=== PATIENT | female | born 1940 | race Caucasian/White ===

== ENCOUNTER 2017-05-23 06:23 | Emergency (ER) | payer MEDICARE, BC ==
[2017-05-23] MEDS ORDERED: Morphine 2 MG/ML SYRINGE ONE (07:04)
--- NOTE | 2017-05-23 07:39 | CT ---
BRAIN CT WITHOUT CONTRAST: Date: HISTORY: Headache. COMPARISON: CT brain dated 01/27/08. FINDINGS: Mild atrophy. Mild microangiopathic changes. Calvarium is intact. Paranasal sinuses and mastoids are clear. IMPRESSION: No acute intracranial abnormality. POS: [facility]
[2017-05-23] MEDS ORDERED: Ondansetron ODT 4 MG TAB ONE (08:25)
[2017-05-23] MEDS ORDERED: Ketorolac Tromethamine 30 MG/ML VIAL ONE (08:25)
== END 2017-05-23 08:55 | disposition home or self-care (01) ==
LOC: SCSER 06:23
DX: G43.009 Migraine without aura, not intractable, without status migrainosus (principal); F41.9 Anxiety disorder, unspecified; K21.9 Gastro-esophageal reflux disease without esophagitis; I10 Essential (primary) hypertension; Z79.899 Other long term (current) drug therapy
CPT/HCPCS: 70450; 96372; J1885; J2270; Q0162

== ENCOUNTER 2017-06-10 09:36 | Outpatient (CLI) | payer MEDICARE, BC ==
--- NOTE | 2017-06-10 13:09 | RAD ---
EXAM: ABDOMEN 1 VIEW: HISTORY: The patient is scheduled for upper GI. The patient was given CT contrast. FINDINGS: There is still evidence of contrast in the colon. Given the presence of contrast, the patient will b e scheduled for upper GI early part of next week. Marked levorotoscoliosis of the lumbar spine is noted. A moderate amount of fecal material in the co randi is identified. IMPRESSION: The patient was rescheduled for upper GI next week. POS: [facility]
== END 2017-06-10 09:37 | disposition home or self-care (01) ==
LOC: RAD 09:36
PROVIDERS: ATTEND Specialist
DX: R13.10 Dysphagia, unspecified (principal)
CPT/HCPCS: 74000

== ENCOUNTER 2017-06-13 09:39 | Outpatient (CLI) | payer MEDICARE, BC ==
--- NOTE | 2017-06-13 13:22 | RAD ---
UPPER GI: HISTORY: Dysphagia. Hiatal hernia. FINDINGS: A small hiatal hernia remains with a severe Schatzki's ring. There is also significant partial obstr uction at the level of the diaphragm. Markedly diminished peristalsis of the stomach was apparent be low the diaphragm. Nonpropulsive, tertiary contractions of the esophagus were evident. FLUOROSCOPY TIME: 1.5 minutes. IMPRESSION: 1. Small recurrent hiatal hernia with partial obstructions at a severe Schatzki's ring and at the le donnell of the diaphragm. 2. Significant hypoperistalsis of the stomach. POS: [facility]
== END 2017-06-13 09:40 | disposition home or self-care (01) ==
LOC: RAD 09:39
PROVIDERS: ATTEND Specialist
DX: R13.10 Dysphagia, unspecified (principal); K44.9 Diaphragmatic hernia without obstruction or gangrene
CPT/HCPCS: 74247

== ENCOUNTER 2017-07-12 09:54 | Outpatient (CLI) | payer MEDICARE, BC ==
[2017-07-12 10:32] LABS: Anion Gap 11 mmol/L (10-20); BUN (Urea Nitrogen) 18 mg/dL (9.8-20.1); Calc. Creatinine Clearance 0 mL/min (70-130); Calcium 9.6 mg/dL (7.8-10.44); Carbon Dioxide 29 mmol/L (23-31); Chloride 98 mmol/L (98-107); Estimated GFR-MDRD 61
--- NOTE | 2017-07-12 12:53 | ULT ---
ULTRASOUND RETROPERITONEUM COMPLETE: (RENAL) DATE: 07-12-17 HISTORY: 76-year-old female with urge incontinence, N39.41, incomplete emptying of bladder R33.9. COMPARISON: None. FINDINGS: Right kidney is 7.5 x 4.5 x 4 cm. Left kidney is 8.5 x 2.5 x 4 cm. There is no hydronephrosis bilaterally. No moderate or large cystic or solid renal mass is identified. Pre void bladder volume is 60 ml. Post void bladder volume is 45 ml. No neoplasm within the bladder lumen identified. IMPRESSION: 1. Incomplete voiding. 2. Bilateral kidneys are small, especially the right. JACKIE Cochran POS: [facility]
== END 2017-07-12 09:55 | disposition home or self-care (01) ==
LOC: ULT 09:54
PROVIDERS: ATTEND Urology
DX: N39.41 Urge incontinence (principal); R33.9 Retention of urine, unspecified; N27.1 Small kidney, bilateral; Z87.440 Personal history of urinary (tract) infections
CPT/HCPCS: 36415; 76770; 80048

== ENCOUNTER 2017-12-01 13:02 | Outpatient (CLI) | payer MEDICARE, BC | END 2017-12-01 13:03 | disposition home or self-care (01) | LOC: BICRAD 13:02 | PROVIDERS: ATTEND Urology | DX: M25.552 Pain in left hip (principal); R10.2 Pelvic and perineal pain | CPT/HCPCS: 72170 ==

== ENCOUNTER 2018-01-02 10:41 | Outpatient (CLI) | payer MEDICARE, BC ==
--- NOTE | 2018-01-02 16:49 | NM ---
WHOLE BODY BONE SCAN WITH TRIPLE PHASE IMAGING OF THE HIPS: HISTORY: Pain in both hips. FINDINGS: No increased blood flow or blood pooling seen in either hip. Whole body scan demonstrates levoscolio sis of the lumbar spine with heterogeneous uptake consistent with degenerative changes. There are a foci of increased uptake in a couple of right mid ribs, anteriorly, in a pattern consistent with frac tures. No abnormal areas of tracer localization are seen on the delayed images of the hip joints. T racer excretion through the kidneys is within normal limits. IMPRESSION: 1. No evidence of hip fracture. 2. Right rib fractures. POS: [facility]
== END 2018-01-02 10:42 | disposition home or self-care (01) ==
LOC: NM 10:41
PROVIDERS: ATTEND Internal Medicine
DX: S22.41XA Multiple fractures of ribs, right side, initial encounter for closed fracture (principal); M25.551 Pain in right hip; M25.552 Pain in left hip
CPT/HCPCS: 78315; A9503

== ENCOUNTER 2018-08-04 09:33 | Outpatient (CLI) | payer MEDICARE, BC ==
--- NOTE | 2018-08-04 11:37 | BD ---
DEXA Bone Density Comparison: 04-29-14 History: 77-year-old post-menopausal female for screening. Lumbar Spine: BMD (g/cm2) L1 0.693 T-Score: -2.7 L2 0.826 T-Score: -1.8 L3 0.908 T-Score: -1.6 L4 0.882 T-Score: -1.6 L1-L4 0.839 T-Score: -1.9 Femoral Neck: 0.524 T-Score: -2.9 Total Femur: 0.650 T-Score: -2.4 Impression: Osteoporosis. This patient has been a 7-8 x increased risk of fracture when compared to the young pat ients with normal bone mineral density. POS: [facility]
== END 2018-08-04 09:34 | disposition home or self-care (01) ==
LOC: BICMAMMO 09:33
PROVIDERS: ATTEND Internal Medicine
DX: Z12.31 Encounter for screening mammogram for malignant neoplasm of breast (principal); M85.89 Other specified disorders of bone density and structure, multiple sites; M81.0 Age-related osteoporosis without current pathological fracture
CPT/HCPCS: 77063; 77067; 77080

== ENCOUNTER 2018-08-08 13:13 | Outpatient (CLI) | payer MEDICARE, BC ==
--- NOTE | 2018-08-08 16:07 | MRI ---
MRI LUMBAR SPINE NONCONTRAST: History: Low back pain. FINDINGS: Conus medullaris has a normal appearance. There is severe rightward convex rotatory scoliotic curvatu re. Desiccation of all of the vertebral discs. No evidence of compression fracture. T12-L1, L1-2: Very mild disc bulge. Osteophytosis of the facets. The central canal and neural foramin a are patent. L2-3: Disc space narrowing. Moderate stenosis of the right neural foramen due to concavity of the sco liotic curvature. Osteophytosis of each facet. Thecal sac and left neural foramen remain patent. L3-4: Disc space narrowing. Posterior disc bulge and circumferential degenerative changes result in s evere stenosis of the central canal. There is severe right and moderate left foraminal stenosis. L4-5: Minimal disc bulge. Prominent facet joint hypertrophy and posterior ligamentous thickening. Mod erate stenosis of the central canal. Moderate bilateral foraminal stenosis. L5-S1: Minimal disc bulge. Facet joint hypertrophy and ligamentous thickening. Thecal sac is patent. Moderate to severe left foraminal stenosis. IMPRESSION: Prominent multilevel degenerative changes of the lumbar spine with severe rightward convex rotatory s coliotic curvature. Central canal and foraminal stenoses are most severe at the L3-4 level. POS: [facility]
== END 2018-08-08 13:14 | disposition home or self-care (01) ==
LOC: SCSMRI 13:13
PROVIDERS: ATTEND Anesthesiology
DX: M48.061 Spinal stenosis, lumbar region without neurogenic claudication (principal); M47.816 Spondylosis without myelopathy or radiculopathy, lumbar region; M41.9 Scoliosis, unspecified
CPT/HCPCS: 72148

== ENCOUNTER 2018-08-15 14:00 | Outpatient (CLI) | payer MEDICARE, BC ==
--- NOTE | 2018-08-15 15:44 | ULT ---
LEFT BREAST ULTRASOUND: HISTORY: Abnormal mammogram. FINDINGS: Correlation is made with the mammograms of 08/04/2018 and today. Sonographic evaluation of the posterior medial central lower left breast demonstrates no abnormality to correspond to the mammographic finding. IMPRESSION: BIRADS category 4 - suspicious abnormality. Needle localization biopsy is recommended. Discussed in person with the patient at 1450 hours. CODE CR POS: [facility]
== END 2018-08-15 14:01 | disposition home or self-care (01) ==
LOC: BICMAMMO 14:00
PROVIDERS: ATTEND Internal Medicine
DX: N63.20 Unspecified lump in the left breast, unspecified quadrant (principal)
CPT/HCPCS: 76642; 77065; G0279

== ENCOUNTER 2018-09-19 13:19 | Outpatient (CLI) | payer MEDICARE, BC ==
[2018-09-19 14:33] LABS: #Eosinphils 0.1 thou/uL (0.0-0.7); #Lymphocytes 1.1 thou/uL (1.20-3.40); #Monocytes 0.4 thou/uL (0.11-0.59); #Neutrophils 4.5 thou/uL (1.40-6.50); %Basophils 0.5 % (0.0-1.0); %Eosinophils 1.4 % (0.0-10.0); %Lymphocytes 17.3 % (21.0-51.0); %Neutrophils 73.8 % (42.0-75.0); Hemoglobin 12.7 g/dL (12.0-16.0); Mean Corpuscular Hemoglobin 30.2 pg (27.0-31.0); Mean Corpuscular Volume 94.4 fL (78.0-98.0); Platelet Count 312 thou/uL (130-400); Red Blood Cell (RBC) Count 4.21 mill/uL (4.20-5.40); White Blood Cell (WBC) Count 6.1 thou/uL (4.8-10.8)
[2018-09-19 14:59] LABS: ALT (SGPT) 23 U/L (8-55); AST (SGOT) 19 U/L (5-34); Albumin 4.6 g/dL (3.4-4.8); Alkaline Phosphatase 66 U/L (40-150); Anion Gap 11 mmol/L (10-20); BUN (Urea Nitrogen) 16 mg/dL (9.8-20.1); Bilirubin, Total 0.7 mg/dL (0.2-1.2); Calc. Creatinine Clearance 0 mL/min (70-130); Calcium 9.9 mg/dL (7.8-10.44); Carbon Dioxide 27 mmol/L (23-31); Chloride 97 mmol/L (98-107); Estimated GFR-MDRD 76; Globulin 2.1 g/dL (2.4-3.5); Glucose 106 mg/dL (83-110); Potassium 4.1 mmol/L (3.5-5.1); Protein, Total 6.7 g/dL (6.0-8.3); Sodium 131 mmol/L (136-145)
== END 2018-09-19 13:20 | disposition home or self-care (01) ==
LOC: LABBT 13:19
PROVIDERS: ATTEND Surgery
DX: Z01.818 Encounter for other preprocedural examination (principal); N63.20 Unspecified lump in the left breast, unspecified quadrant
CPT/HCPCS: 80053; 85025; 93005; 93010

== ENCOUNTER 2018-09-27 08:04 | Day surgery (SDC) | payer MEDICARE, BC ==
[2018-09-19 13:44] VITALS: BMI 19.7
[2018-09-27] MEDS ORDERED: Bupivacaine/Epinephrine 0.25% 30 ML VIAL ONE (10:28)
[2018-09-27] MEDS ORDERED: Lidocaine 2% Jelly 5 ML TUBE ONE (10:42)
[2018-09-27] MEDS ORDERED: Fentanyl 100 MCG/2 ML VIAL ONE (10:42)
[2018-09-27] MEDS ORDERED: Scopolamine 1.5 mg/72 hour Patch ONE (10:44)
--- NOTE | 2018-09-27 11:14 | MMO ---
MAMMOGRAPHIC GUIDED LEFT BREAST NEEDLE LOCALIZATION: HISTORY: Left breast lesion. COMPARISON: Ultrasound from 08/15/2018. Multiple prior mammograms, most recent 08/15/2018. TECHNIQUE: The patient was brought to the mammo suite. All questions were answered. The patient's left breast was prepped and draped in a normal sterile fashion. Using mammographic arsalan dance, the left breast lesion and the upper, inner, deep left breast was accessed using a 7.5 cm Home r needle. The tip of the wire is coiled within the lesion. IMPRESSION: Technically successful mammographic guided left breast mass needle localization. The exam is annotated and saved on PACS. POS: [facility]
--- NOTE | 2018-09-27 12:10 | MMO ---
MAMMOGRAM SURGICAL SPECIMEN: Date: 09/27/18 HISTORY: Breast mass. COMPARISON: Needle localization same date. FINDINGS: The specimen contains calcifications, as well as the wire and the mass in question. IMPRESSION: Satisfactory specimen. POS: [facility]
--- NOTE | 2018-09-27 12:20 | OP ---
DATE OF PROCEDURE: 09/27/2018 PREOPERATIVE DIAGNOSIS: Abnormal mammogram. PROCEDURE PERFORMED: Left needle localization lumpectomy. INDICATIONS: This is a 77-year-old female, who had a nonpalpable abnormality in the left breast that they did not feel comfortable doing core biopsy on. FINDINGS: Successful removal by specimen mammogram. DESCRIPTION OF PROCEDURE: After informed consent was obtained, the patient was taken to the operating room, given general mask anesthesia, placed in the supine position, and breast was prepped and draped in usual fashion. She had undergone placement of the wire in the mammography suite. Local anesthesia infiltrated subcutaneously and deep. A curvilinear incision was performed. Subcu divided sharply and a core breast tissue excised around the needle. The specimen was marked with the needle superior, black stitch anterior, and a white stitch lateral, sent to Mammography, which revealed that it did contain the area of suspicion, sent to Pathology for further analysis. Hemostasis achieved with electrocautery. The wound was irrigated, hemostasis assured, subcu reapproximated with interrupted 3-0 Vicryl, skin closed with interrupted 4-0 Rapide. Steri-Strips applied, sterile bandage applied. The patient tolerated the procedure well, transferred to Recovery in good condition. Sponge and needle count verified correct x2. Job ID: [id number]
[2018-09-27] MEDS ORDERED: HYDROcodone/Acetaminophen 5/325 mg Tablet ONE (13:21)
[2018-09-27] MEDS ORDERED: Glycopyrrolate 0.2 MG/ML 5 ML SYRINGE ONE (14:50)
[2018-09-27] MEDS ORDERED: PHENYLEPHRINE-NS 100 MCG/ML 10 ML SYRINGE ONE (14:50)
[2018-09-27] MEDS ORDERED: PROPOFOL 200 MG/20 ML VIAL ONE (14:50)
[2018-09-27] MEDS ORDERED: Ondansetron PF 4 MG/2 ML Vial ONE (14:50)
[2018-09-27] MEDS ORDERED: Lidocaine 1% PF 5 ML VIAL ONE (14:50)
== END 2018-09-27 13:50 | disposition home or self-care (01) ==
LOC: SDC 08:04
PROVIDERS: ATTEND Surgery
PROC: 0HBU0ZZ Excision of Left Breast, Open Approach (ICD-10-PCS; principal; 2018-09-27)
DX: N60.32 Fibrosclerosis of left breast (principal); I10 Essential (primary) hypertension; M41.9 Scoliosis, unspecified; M19.90 Unspecified osteoarthritis, unspecified site; K21.9 Gastro-esophageal reflux disease without esophagitis; Z90.710 Acquired absence of both cervix and uterus; Z85.828 Personal history of other malignant neoplasm of skin; Z79.899 Other long term (current) drug therapy; Z98.890 Other specified postprocedural states
CPT/HCPCS: 19281; 76098; 88305; J2001; J2405; J2704; J3010

== ENCOUNTER 2019-03-12 07:05 | Outpatient (CLI) | payer MEDICARE, BC ==
[2019-03-12] MEDS ORDERED: Gadobenate Dimeglumine 529 MG/1 ML (20ML VIAL) ONE (09:00)
--- NOTE | 2019-03-12 09:16 | MRI ---
MRI Brain W WO Con: 03/12/2019 12:00 AM CLINICAL HISTORY: Pain. COMPARISON: None. FINDINGS: Extra axial spaces: Normal in size and morphology for the patient's age. Acute infarction: None. Ventricular system: Normal in size and morphology for the patient's age. Basal cisterns: Normal. Cerebral parenchyma: Microvascular ischemic changes. Pontine gliosis is also present. Midline shift: None. Cerebellum: Normal. Brainstem: Normal. Paranasal sinuses:Scattered mucosal thickening. Intraaxial Enhancement: None IMPRESSION:No acute intracranial abnormality.
--- NOTE | 2019-03-12 09:26 | MRI ---
MRI cervical spine with and without contrast: 03/12/2019 HISTORY: 78-year-old female with cervicalgia COMPARISON: None FINDINGS: There is no abnormal enhancement in the intramedullary, extramedullary-intradural, or perivertebral, spaces. Developmentally small caliber spinal canal due to congenitally short pedicles. This is exacerbated by cervical spondylosis as described below. High-grade disc space narrowing at C3-4, C4-5, C5-6, and C6-7, where there are broad-based disc-osteo phytic bar complex is encroaching upon the anterior aspect of the spinal canal. These indent the ventral surface of the spinal cord, at C4-5, C5-6, and C6-7. Thickened ligamentum flavum indents the dorsal surface of the spinal cord at C4-5 and C5-6. Uncinate process osteophytes of varying sizes encroach upon bilateral neural foramina, causing neural foraminal stenosis. Multilevel bilateral dege nerative facet hypertrophy, ranging from mild to moderate-severe. Nonspecific mild patchy bone marrow heterogeneous enhancement at C5, C6, and C7, probably degenerative in nature. No syringohydrom yelia. Questionable minimal or mild intramedullary T2 hyperintensity from C4 through C7 suggested on FLAIR sequence, but not confirmed on T2-weighted sequence. C1-2: No central stenosis. C2-3: Mild to moderate central stenosis. Mild bilateral neural foraminal stenosis. C3-4: The above-mentioned broad-based disc-osteophytic bar complex is asymmetrically larger on the le ft side than right, causing moderate central spinal canal stenosis overall. In addition, there is a superimposed tiny focal left paracentral-lateral disc protrusion or disc-osteophyte complex abutting the left ventral aspect of the spinal cord. Moderate to severe right neural foraminal stenosis. Severe left neural foraminal stenosis. C4-5: Severe central spinal canal stenosis with chronic cord impingement. Very severe right neural fo raminal stenosis. Severe left neural foraminal stenosis. C5-6: Severe central spinal canal stenosis with chronic cord impingement. Very severe bilateral neura l foraminal stenosis. C6-7: Severe central spinal canal stenosis with chronic cord impingement. Moderate right neural elgin inal stenosis. Very severe left neural foraminal stenosis. C7-T1: No central stenosis. No right-sided neural foraminal stenosis. Moderate to severe left neural foraminal stenosis. IMPRESSION: 1. Developmentally small caliber spinal canal exacerbated by high-grade cervical spondylosis, multile donnell high-grade degenerative disc disease. 2. Severe central spinal canal stenosis with chronic cord compressions at C4-5, C5-6, and C6-7. 3. Multilevel severe and very severe bilateral neural foraminal stenosis.
== END 2019-03-12 07:06 | disposition home or self-care (01) ==
LOC: SCSMRI 07:05
PROVIDERS: ATTEND Internal Medicine
DX: R51 Headache (principal); M54.81 Occipital neuralgia; M50.30 Other cervical disc degeneration, unspecified cervical region; M47.812 Spondylosis without myelopathy or radiculopathy, cervical region; M48.02 Spinal stenosis, cervical region; Z91.81 History of falling
CPT/HCPCS: 70553; 72156; A9577

== ENCOUNTER 2021-08-24 02:53 | Emergency (ER) | payer MEDICARE, BC | END 2021-08-24 05:01 | disposition home or self-care (01) | LOC: ERS 02:53 | DX: S01.01XA Laceration without foreign body of scalp, initial encounter (principal); I10 Essential (primary) hypertension; K21.9 Gastro-esophageal reflux disease without esophagitis; Z79.899 Other long term (current) drug therapy; Z79.82 Long term (current) use of aspirin; W19.XXXA Unspecified fall, initial encounter | CPT/HCPCS: 12002; 70450; 72125 ==

== ENCOUNTER 2021-09-26 11:35 | Emergency (ER) | payer MEDICARE, BC ==
[2021-09-26] MEDS ORDERED: Xylocaine 1% w/ Epi 1:100K 10 ML VIAL ONE (12:04)
[2021-09-26] MEDS ORDERED: Bacitracin 1 PK ONE (14:24)
== END 2021-09-26 15:07 | disposition home or self-care (01) ==
LOC: ERS 11:35
DX: S02.2XXA Fracture of nasal bones, initial encounter for closed fracture (principal); S01.112A Laceration without foreign body of left eyelid and periocular area, initial encounter; S01.21XA Laceration without foreign body of nose, initial encounter; I10 Essential (primary) hypertension; K21.9 Gastro-esophageal reflux disease without esophagitis; Z79.899 Other long term (current) drug therapy; Z79.82 Long term (current) use of aspirin; W05.0XXA Fall from non-moving wheelchair, initial encounter
CPT/HCPCS: 12013; 70450; 70486; 72125

== ENCOUNTER 2022-01-21 12:35 | Inpatient (IN) | payer MEDICARE, BC ==
[2022-01-21] MEDS ORDERED: cefTRIAXone\\ROCEPHIN 2 GM VIAL ONE (13:29)
[2022-01-21 13:38] LABS: #Eosinphils 0.2 thou/uL (0.0-0.7); #Lymphocytes 0.9 thou/uL (1.20-3.40); #Monocytes 0.8 thou/uL (0.11-0.59); #Neutrophils 10.5 thou/uL (1.40-6.50); %Basophils 0.2 % (0.0-1.0); %Eosinophils 1.9 % (0.0-10.0); %Lymphocytes 7.4 % (21.0-51.0); %Monocytes 6.6 % (0.0-10.0); %Neutrophils 83.9 % (42.0-75.0); Hemoglobin 11.4 g/dL (12.0-16.0); Mean Corpuscular HGB CONC 31.9 g/dL (32.0-36.0); Mean Corpuscular Hemoglobin 28.1 pg (27.0-31.0); Mean Platelet Volume 7.9 fL (7.4-10.4); Platelet Count 221 thou/uL (130-400); RBC Distribution Width 14.4 % (11.5-14.5); Red Blood Cell (RBC) Count 4.07 mill/uL (4.20-5.40); White Blood Cell (WBC) Count 12.5 thou/uL (4.8-10.8)
[2022-01-21 13:58] LABS: ALT (SGPT) 12 U/L (8-55); AST (SGOT) 15 U/L (5-34); Albumin 3.6 g/dL (3.4-4.8); Alkaline Phosphatase 90 U/L (40-110); Anion Gap 14 mmol/L (10-20); BUN (Urea Nitrogen) 13 mg/dL (9.8-20.1); Bilirubin, Total 0.9 mg/dL (0.2-1.2); CK (CPK) 17 U/L (29-168); Calc. Creatinine Clearance 0 mL/min (70-130); Calcium 8.8 mg/dL (7.8-10.44); Carbon Dioxide 26 mmol/L (23-31); Chloride 99 mmol/L (98-107); Estimated GFR 93; Globulin 2.8 g/dL (2.4-3.5); Glucose 96 mg/dL (83-110); Lipase 7 U/L (8-78); Potassium 3.9 mmol/L (3.5-5.1); Protein, Total 6.4 g/dL (5.8-8.1); Sodium 135 mmol/L (136-145)
[2022-01-21] MEDS ORDERED: Vancomycin 1 GM/200 ML BAG ONE (14:24)
[2022-01-21 17:19] LABS: Bacteria/HPF 3+ HPF (None Seen); Bilirubin Negative (Negative); Blood, Urine 1+ (Negative); Clarity Clear (Clear); Glucose, Urine (Dipstick) Normal (Negative); Ketone, Urine Negative (Negative); Leukocyte 500 Leu/uL (Negative); Nitrite Negative (Negative); Protein, Urine (Dipstick) Negative (Neg-Trace); RBC/HPF 0-3 HPF (0-3); Specific Gravity, Urine 1.004 (1.002-1.036); Squamous Epithelial None Seen HPF (0-3); Urobilinogen Normal mg/dL (Less than 2); pH, Urine 5.5 (5.0-9.0)
[2022-01-21 18:01] LABS: SARS-CoV-2 NAA Rapid Test Not Detected (NotDetected)
[2022-01-21] MEDS ORDERED: Acetaminophen 325 MG TAB PO PRN (19:30)
[2022-01-21] MEDS ORDERED: Ondansetron ODT 4 MG TAB SL PRN (19:30)
[2022-01-21] MEDS ORDERED: Ondansetron PF 4 MG/2 ML Vial IVP PRN (19:30)
[2022-01-21] MEDS ORDERED: Loperamide HCl 2 MG CAP PO PRN (20:08)
[2022-01-21] MEDS ORDERED: Loperamide HCl 2 MG CAP PO SCH (20:08)
[2022-01-21] MEDS ORDERED: HYDROcodone/Acetaminophen 5/325 mg Tablet PO PRN (20:08)
[2022-01-21] MEDS ORDERED: Bisacodyl 10 MG SUPP PR PRN (20:08)
[2022-01-21] MEDS: Famotidine 20 MG TAB PO SCH (22:34)
[2022-01-21] MEDS ORDERED: Lorazepam 1 MG TAB PO SCH (22:45)
[2022-01-22 06:15] LABS: Anion Gap 13 mmol/L (10-20); BUN (Urea Nitrogen) 8 mg/dL (9.8-20.1); Calc. Creatinine Clearance 59 mL/min (70-130); Calcium 8.7 mg/dL (7.8-10.44); Carbon Dioxide 25 mmol/L (23-31); Chloride 104 mmol/L (98-107); Estimated GFR 93; Glucose 115 mg/dL (83-110); Potassium 3.4 mmol/L (3.5-5.1); Sodium 139 mmol/L (136-145)
[2022-01-22 06:24] LABS: #Eosinphils 0.3 thou/uL (0.0-0.7); #Lymphocytes 0.6 thou/uL (1.20-3.40); #Monocytes 0.7 thou/uL (0.11-0.59); %Basophils 0.4 % (0.0-1.0); %Eosinophils 3.1 % (0.0-10.0); %Lymphocytes 7.4 % (21.0-51.0); %Neutrophils 81.2 % (42.0-75.0); Hemoglobin 11.3 g/dL (12.0-16.0); Mean Corpuscular HGB CONC 31.9 g/dL (32.0-36.0); Mean Corpuscular Volume 87.5 fL (78.0-98.0); Mean Platelet Volume 7.9 fL (7.4-10.4); Platelet Count 205 thou/uL (130-400); RBC Distribution Width 14.3 % (11.5-14.5); Red Blood Cell (RBC) Count 4.04 mill/uL (4.20-5.40); White Blood Cell (WBC) Count 8.6 thou/uL (4.8-10.8)
[2022-01-22] MEDS: Famotidine 20 MG TAB PO SCH (07:31)
[2022-01-22] MEDS ORDERED: Potassium Chloride 20 MEQ TAB PO SCH (08:00)
[2022-01-22] MEDS: Losartan 25 MG TAB PO SCH (09:38)
[2022-01-22] MEDS: Cholecalciferol 1,000 UNITS (25 MCG) TAB PO SCH (09:39)
[2022-01-22] MEDS ORDERED: Sodium Chloride 0.65% Nasal 44 ML BOT EA NARE PRN (12:11)
[2022-01-22] MEDS ORDERED: Polyethylene Glycol 3350 17 GM Packet PO SCH (13:00)
[2022-01-22] MEDS: cefTRIAXone\\ROCEPHIN 1 GM in Sodium Chloride 0.9% 100 ML IVPB SCH (14:41)
[2022-01-22 14:50] VITALS: BMI 18.3
[2022-01-22] MEDS: Lorazepam 1 MG TAB PO PRN (17:13)
[2022-01-22] MEDS ORDERED: Acetaminophen 325 MG TAB PO PRN (18:55)
[2022-01-22] MEDS ORDERED: Acetaminophen 325 MG TAB PO SCH (19:15)
[2022-01-22] MEDS ORDERED: Melatonin 3 MG TAB PO SCH (21:00)
[2022-01-23] MEDS: Lorazepam 1 MG TAB PO PRN (00:13)
[2022-01-23] MEDS: Cholecalciferol 1,000 UNITS (25 MCG) TAB PO SCH (08:41)
[2022-01-23] MEDS: Losartan 25 MG TAB PO SCH (08:41)
[2022-01-23] MEDS ORDERED: Polyethylene Glycol 3350 17 GM Packet PO SCH (09:00)
[2022-01-23 11:39] VITALS: BP 126/87; TEMP 97.4
[2022-01-23] MEDS: cefTRIAXone\\ROCEPHIN 1 GM in Sodium Chloride 0.9% 100 ML IVPB SCH (14:21)
== END 2022-01-23 15:30 | disposition home health service (06) | DRG 872 ==
LOC: ERS 12:35 → SURG A 18:24 → OBSVTOIN 01-22 13:10
PROVIDERS: ADMIT Internal Medicine; ATTEND Internal Medicine
DX: A41.9 Sepsis, unspecified organism (principal); N39.0 Urinary tract infection, site not specified; E44.0 Moderate protein-calorie malnutrition; Z68.1 Body mass index [BMI] 19.9 or less, adult; Z20.822 Contact with and (suspected) exposure to COVID-19; F41.9 Anxiety disorder, unspecified; F32.A Depression, unspecified; J32.9 Chronic sinusitis, unspecified; I10 Essential (primary) hypertension; K21.9 Gastro-esophageal reflux disease without esophagitis; E87.6 Hypokalemia; Z98.890 Other specified postprocedural states; Z74.01 Bed confinement status; Z79.899 Other long term (current) drug therapy; Z82.49 Family history of ischemic heart disease and other diseases of the circulatory system; Z99.3 Dependence on wheelchair
CPT/HCPCS: 36415; 71045; 80048; 80053; 81003; 81015; 82550; 83605; 83690; 83880; 84484; 85025; 87040; 87086; 93005; J0696; J3370; J3490; U0002